=== PATIENT | female | born 1990 | race Caucasian/White ===

== ENCOUNTER 2018-01-31 11:50 | Emergency (ER) | payer MEDICAID, OTHER ==
[~2018-01-31] VITALS: Ht 162.6 cm; Wt 94.0 kg
[~2018-01-31 11:50] MED LIST: ALBU8HFA PO; HYDR25SU33 RC; IBUP-1984 PO; METO-292 PO; POLY17PO10 PO
[2018-01-31 12:08] VITALS: BP 107/75
[2018-01-31 12:58] LABS: URINE HCG NEGATIVE (NEG)
[2018-01-31 13:14] LABS: CLARITY,URINE CLEAR (Clear); COLOR,URINE YELLOW (Yellow); GLUCOSE, URINE NEGATIVE (Neg); KETONES,URINE TRACE mg/dl (Neg); LEUKOCYTE ESTERASE ,URINE NEGATIVE (Neg); NITRITES, URINE NEGATIVE (Neg); OCCULT BLOOD,URINE NEGATIVE (Neg); PH,URINE 5.5 (4.8-8.0); PROTEIN,URINE NEGATIVE (Neg); UROBILINOGEN,URINE 0.2 E.U/dL (0.2-1.0)
[2018-01-31 13:19] LABS: UA COLLECTION TYPE CLN CATCH MIDSTREAM
== END 2018-01-31 15:43 | disposition home or self-care (01) ==
LOC: ER 11:50
DX: N83.202 Unspecified ovarian cyst, left side (principal); R10.31 Right lower quadrant pain; J45.909 Unspecified asthma, uncomplicated; F12.90 Cannabis use, unspecified, uncomplicated; Z88.8 Allergy status to other drugs, medicaments and biological substances; Z79.899 Other long term (current) drug therapy
CPT/HCPCS: 76856; 81003; 81025; 99285

== ENCOUNTER 2018-02-02 10:10 | Emergency (ER) | payer MEDICAID ==
[~2018-02-02] VITALS: Ht 162.6 cm; Wt 99.5 kg
[2018-02-02] MEDS ORDERED: HYDR-3965 PO (11:33)
[2018-02-02] MEDS ORDERED: morphine 4 MG/ML inj SYRINge IM ONE (12:15)
[2018-02-02 13:11] VITALS: BP 108/67
== END 2018-02-02 13:12 | disposition home or self-care (01) ==
LOC: ER 10:10
DX: N83.209 Unspecified ovarian cyst, unspecified side (principal); J45.909 Unspecified asthma, uncomplicated; F12.90 Cannabis use, unspecified, uncomplicated; Z88.8 Allergy status to other drugs, medicaments and biological substances; Z79.899 Other long term (current) drug therapy; Z60.2 Problems related to living alone
CPT/HCPCS: 96372; 99284; J2270

== ENCOUNTER 2018-07-22 11:28 | Emergency (ER) | payer MEDICAID ==
[~2018-07-22] VITALS: Ht 162.6 cm; Wt 98.0 kg
[2018-07-22] MEDS ORDERED: ketorolac trometh inj. 60 MG/2 ML VIAL IM ONE (11:55)
[2018-07-22 12:14] VITALS: BP 112/67
== END 2018-07-22 12:22 | disposition home or self-care (01) ==
LOC: ER 11:29
DX: M54.5 Low back pain (principal); J45.909 Unspecified asthma, uncomplicated; F12.90 Cannabis use, unspecified, uncomplicated; Z88.8 Allergy status to other drugs, medicaments and biological substances; Z79.899 Other long term (current) drug therapy; Z60.2 Problems related to living alone; W06.XXXA Fall from bed, initial encounter; Y93.89 Activity, other specified; Y92.89 Other specified places as the place of occurrence of the external cause; Y99.8 Other external cause status
CPT/HCPCS: 96372; 99283; J1885

== ENCOUNTER 2019-02-13 14:45 | Emergency (ER) | payer MEDICARE, MEDICAID ==
[~2019-02-13] VITALS: Ht 162.6 cm; Wt 97.0 kg
[~2019-02-13 14:45] MED LIST changes: +LOPE2TAB25 PO
--- NOTE | 2019-02-13 15:39 | NUR ---
officer at bedside to jennifer pt.
--- NOTE | 2019-02-13 16:29 | NUR ---
ONE SAFE PLACE AT BS
[2019-02-13] MEDS ORDERED: azithromycin 250mg tablet PO ONE (19:30)
[2019-02-13] MEDS ORDERED: metroNIDAZOLE 500mg tablet PO ONE (19:30)
[2019-02-13 20:05] LABS: URINE HCG NEGATIVE (NEG)
[2019-02-13 23:17] VITALS: BP 116/73
== END 2019-02-14 00:26 | disposition home or self-care (01) ==
LOC: ER 14:46 → EEVIPCON 14:46 → ER 02-14 00:26
DX: T74.21XA Adult sexual abuse, confirmed, initial encounter (principal); M25.551 Pain in right hip; M25.552 Pain in left hip; J45.909 Unspecified asthma, uncomplicated; F12.90 Cannabis use, unspecified, uncomplicated; F19.90 Other psychoactive substance use, unspecified, uncomplicated; Z60.2 Problems related to living alone; Z88.8 Allergy status to other drugs, medicaments and biological substances; Z79.899 Other long term (current) drug therapy; X58.XXXA Exposure to other specified factors, initial encounter; Y93.89 Activity, other specified; Y92.89 Other specified places as the place of occurrence of the external cause; Y99.8 Other external cause status
CPT/HCPCS: 81025; 99284

== ENCOUNTER 2019-03-10 11:49 | Emergency (ER) | payer MEDICARE, MEDICAID ==
[~2019-03-10] VITALS: Ht 172.7 cm; Wt 110.0 kg
[2019-03-10 11:55] VITALS: BP 166/64
[2019-03-10 12:19] LABS: CLARITY,URINE CLEAR (Clear); COLOR,URINE YELLOW (Yellow); GLUCOSE, URINE NEGATIVE (Neg); KETONES,URINE NEGATIVE (Neg); LEUKOCYTE ESTERASE ,URINE NEGATIVE (Neg); NITRITES, URINE NEGATIVE (Neg); OCCULT BLOOD,URINE TRACE-INTACT (Neg); PROTEIN,URINE NEGATIVE (Neg); UROBILINOGEN,URINE 0.2 E.U/dL (0.2-1.0)
[2019-03-10 12:20] LABS: URINE HCG NEGATIVE (NEG)
[2019-03-10 12:21] LABS: UA COLLECTION TYPE CLN CATCH MIDSTREAM
[2019-03-10 12:30] LABS: BACTERIA,URINE 2+ /HPF (Neg); MUCUS STRANDS NONE SEEN /LPF (Neg); RBC,URINE 0-2 /HPF (0-2); SQUAMOUS EPITHELIAL CELL,UR MODERATE /LPF (FEW); WBC,URINE 0-4 /HPF (0-4)
== END 2019-03-10 14:24 | disposition home or self-care (01) ==
LOC: ER 11:50
DX: R10.2 Pelvic and perineal pain (principal); J45.909 Unspecified asthma, uncomplicated; F12.90 Cannabis use, unspecified, uncomplicated; F19.90 Other psychoactive substance use, unspecified, uncomplicated; Z60.2 Problems related to living alone; Z88.8 Allergy status to other drugs, medicaments and biological substances; Z79.899 Other long term (current) drug therapy
CPT/HCPCS: 76856; 81001; 81025; 99284

== ENCOUNTER 2019-05-26 07:44 | Day surgery (SDC) | payer MEDICARE, MEDICAID ==
[2019-05-22 14:09] LABS: CLARITY,URINE CLEAR (Clear); COLOR,URINE YELLOW (Yellow); GLUCOSE, URINE NEGATIVE (Neg); KETONES,URINE NEGATIVE (Neg); LEUKOCYTE ESTERASE ,URINE NEGATIVE (Neg); NITRITES, URINE NEGATIVE (Neg); OCCULT BLOOD,URINE NEGATIVE (Neg); PROTEIN,URINE NEGATIVE (Neg); UA COLLECTION TYPE NON-SPECIFIED; UROBILINOGEN,URINE 0.2 E.U/dL (0.2-1.0)
[2019-05-22 14:12] LABS: BASOPHILS % (AUTO) 0.5 % (0-1); EOSINOPHILS % (AUTO) 0 % (0-6); LYMPHOCYTES # (AUTO) 1.9 X10'3 (1.1-4.8); LYMPHOCYTES % (AUTO) 22.4 % (21-51); MEAN CORPUSCULAR HGB CONC 34.7 g/dL (33.0-36.5); MEAN CORPUSCULAR VOLUME 89.3 FL (78-98); MEAN PLATELET VOLUME 8.8 FL (7.4-10.4); MONOCYTES # (AUTO) 0.5 X10'3 (0-0.9); MONOCYTES % (AUTO) 5.9 % (2-12); NEUTROPHILS # (AUTO) 5.9 X10'3 (1.8-7.7); NEUTROPHILS % (AUTO) 71.2 % (42-75); PRE OP HEMATOCRIT 41.6 % (35.0-45.0); PRE OP HEMOGLOBIN 14.4 g/dL (12.0-16.0); PRE OP PLATELET COUNT 189 X10'3 (140-440); RED BLOOD COUNT 4.66 X10'6 (4.20-5.60); RED CELL DISTRIBUTION WIDTH 13.4 % (11.5-14.5)
[2019-05-22 14:20] LABS: PRE OP PROTIME 10.4 SECONDS (9.0-12.0)
[2019-05-22 14:22] LABS: HCG SERUM QL NEGATIVE
[2019-05-22 14:23] LABS: ALBUMIN 3.8 G/DL (3.4-5.0); ALKALINE PHOSPHATASE 50 IU/L (46-116); BLOOD UREA NITROGEN 10 MG/DL (7-18); CALCIUM 9.6 MG/DL (8.5-10.1); CHLORIDE 104 MMOL/L (99-107); CREATININE 0.77 MG/DL (0.40-0.90); PRE OP ALT 28 U/L (30-65); PRE OP ANION GAP 7 (8-16); PRE OP AST 18 U/L (10-37); PRE OP BILIRUB, TOTAL 0.6 MG/DL (0.0-1.0); PRE OP GLUCOSE 111 MG/DL (70-104); PRE OP POTASSIUM 3.9 MMOL/L (3.4-5.1); PRE OP SODIUM 140 MMOL/L (135-145); TOTAL CARBON DIOXIDE 28.8 MMOL/L (24-32); TOTAL PROTEIN 7.7 G/DL (6.4-8.2); eGFR 88 ML/MIN
[2019-05-26] VITALS (9 sets, daily range): BP systolic 108–135; BP diastolic 63–88
[~2019-05-26] VITALS: Ht 162.6 cm; Wt 100.2 kg
[~2019-05-26 07:44] MED LIST changes: -ALBU8HFA PO; +BUPIVAcaine/PF 2.5 mg/ml (0.25%) 30ml vial ONE; +CHOL500061 PO; -HYDR25SU33 RC; -IBUP-1984 PO; +LITH450T2 PO; -LOPE2TAB25 PO; +LORA-660 PO; -METO-292 PO; +MONT10TA26 PO; -POLY17PO10 PO; +PRAZ5CAP PO; +ceFOXitin sod/dextrose 2g/50ml 50 ML IV ONE; +famotidine 20mg tablet PO ONE; +ringers solution, lacted 1,000 ML IV SCH
[2019-05-26] MEDS ORDERED: LIDOcaine 1% (10mg/ml) 2ml vial SQ ONE (08:30)
[2019-05-26] MEDS ORDERED: LIDOcaine 1% (10mg/ml) 2ml vial ONE (08:34)
[2019-05-26] MEDS ORDERED: ringers solution, lacted 1,000 ML IV SCH (09:43)
[2019-05-26] MEDS ORDERED: fentaNYL/PF 50MCG/1 ML 2ML syringe IV PRN ×2 (09:45)
[2019-05-26] MEDS ORDERED: hydrALAZINE 20mg/ml inj. IV PRN (09:45)
[2019-05-26] MEDS ORDERED: labetalol 20mg/4ml (5mg/ml) syringe IV PRN (09:45)
[2019-05-26] MEDS ORDERED: morphine 2 MG/ML inj. syringe IV PRN (09:45)
[2019-05-26] MEDS ORDERED: ondansetron/PF 4mg/2ml inj IV PRN (09:45)
[2019-05-26] MEDS ORDERED: neostigmine methylsulfate 1 MG/ML 10ml vial ONE (10:40)
[2019-05-26] MEDS ORDERED: sevoflurane 250ml liquid IH ONE (10:40)
[2019-05-26] MEDS ORDERED: fentaNYL/PF 50MCG/1 ML 2ML syringe ONE (10:48)
[2019-05-26] MEDS ORDERED: midazolam 2 mg/2 ml injection ONE ×2 (10:50)
[2019-05-26] MEDS ORDERED: rocuronium 10mg/ml inj IV ONE (10:53)
[2019-05-26] MEDS ORDERED: propofol inj 20 ML IV ONE (10:53)
[2019-05-26] MEDS ORDERED: ondansetron/PF 4mg/2ml inj ONE (10:58)
[2019-05-26] MEDS ORDERED: LIDOcaine 2% (20mg/ml) 5ml vial ONE (10:58)
[2019-05-26] MEDS ORDERED: glycopyrrolate 0.2mg/ml inj ONE (11:25)
--- NOTE | 2019-05-26 11:42 | NUR ---
Received from OR via , accompanied by Anesthesiologist DR ALVARENGA and report given by Anesthesiologist. PT DROWSY, PAINFUL, 3 LAP SITES W/DERMABOND, CDI, KAMINI PAD IN PLACE, SCANT AMT OF DRAINAGE. Addendum: 05/26/19 at 1201 by Liss Becerra RN Amended: Links added.
[2019-05-26] MEDS: morphine 4 MG/ML inj SYRINge IV PRN ×2 (11:48→12:03)
[2019-05-26] MEDS ORDERED: ketorolac trometh. 30mg/ml inj. IV ONE (11:50)
[2019-05-26] MEDS ORDERED: HYDROcodone/acetaminophen 10/325mg tab PO ONE (12:45)
--- NOTE | 2019-05-26 13:12 | NUR ---
D/C INSTRUCTIONS GIVEN AND GONE OVER W/PT AND PTS CAREGIVERS, ALL VERBALIZE UNDERSTANDING, NAUSEA SUBSIDED, NORCO 10/325 MG GIVEN FOR RIDE HOME TO [facility], PT D/CD TO HOME VIA W/C TO PRIVATE VEHICLE W/O INCIDENT. Addendum: 05/26/19 at 1322 by Liss Becerra RN Amended: Links added.
== END 2019-05-26 13:12 | disposition home or self-care (01) ==
LOC: PAS 07:44
PROVIDERS: ATTEND Obstetrics & Gynecology
DX: Z30.2 Encounter for sterilization (principal); G47.30 Sleep apnea, unspecified; F31.9 Bipolar disorder, unspecified; E66.01 Morbid (severe) obesity due to excess calories; Z68.39 Body mass index [BMI] 39.0-39.9, adult; Z88.8 Allergy status to other drugs, medicaments and biological substances; Z79.899 Other long term (current) drug therapy; Z79.01 Long term (current) use of anticoagulants
CPT/HCPCS: 36415; 58661; 80053; 81003; 82948; 84703; 85025; 85610; 85730; 86885; 86900; 86901; J0694; J1885; J2001; J2250; J2270; J2405; J2704; J2710; J3010; J3490; A4618; J7120

== ENCOUNTER 2022-03-15 14:41 | Emergency (ER) | payer MEDICARE, MEDICAID ==
[~2022-03-15 14:41] MED LIST changes: -BUPIVAcaine/PF 2.5 mg/ml (0.25%) 30ml vial ONE; +LORA-657 PO; -LORA-660 PO; +MONT-40 PO; -MONT10TA26 PO; -ceFOXitin sod/dextrose 2g/50ml 50 ML IV ONE; -famotidine 20mg tablet PO ONE; -ringers solution, lacted 1,000 ML IV SCH
== END 2022-03-15 17:34 | disposition left against medical advice (07) ==
LOC: ER 14:41
DX: Z00.8 Encounter for other general examination (principal); Z53.21 Procedure and treatment not carried out due to patient leaving prior to being seen by health care provider